=== PATIENT | male | born 1950 | race Caucasian/White ===

== ENCOUNTER 2025-08-09 09:10 | Outpatient (CLI) | payer OTHER, SELFPAY | END 2025-08-09 09:11 | disposition home or self-care (01) | LOC: NFLDREF 08-25 03:11 | PROVIDERS: PCP Family Medicine; Referring Provider Family Medicine; Visit Provider Family Medicine | DX: Z00.00 Encounter for general adult medical examination without abnormal findings (principal); Z12.5 Encounter for screening for malignant neoplasm of prostate | CPT/HCPCS: 80053; G0103 ==